=== PATIENT | female | born 1940 | race Caucasian/White ===

== ENCOUNTER → 2016-07-07 | Day surgery (SDC) | payer MEDICARE, BC ==
[~2016-07-07] VITALS: Ht 167.6 cm; Wt 69.4 kg
[~2016-07-07] MED LIST: ASPI81TA19; DO NOT ADM ANY ANTICOAGULANT DRUGS XX PRN; FAMOTIDINE 20 MG/2 ML VIAL ONE; INSULIN HUMAN REGULAR 1,000 UNITS/10 ML VIAL SQ PRN; IOHEXOL 350 MG/ML 10 ML VIAL (for RAD DIAG) OTHER ONE; LACTATED RINGER'S 1000 ML INJ 1,000 ML IV ONE; LACTATED RINGER'S 1000 ML IV SCH; LEVA500T PO; LEVO.05 PO; LEVOFLOXACIN 500 MG PREMIX INJ 100 ML IV SCH; METOPROLOL TARTRATE 25 MG TAB PO PRN; MIDAZOLAM HCL 2 MG/2 ML VIAL ONE; MULTTAB67 PO; ONDANSETRON HCL 4 MG/2 ML VIAL IV PUSH ONE; ONDANSETRON HCL 4 MG/2 ML VIAL IV PUSH PRN; OXYB5TAB10 PO; PERC5TAB12 PO; PROPOFOL 200 MG/20 ML AMP IV ONE; SODIUM CHLORID 0.9% 500 ML IV SCH; TEMA15CA PO; [UNRECOGNIZED DRUG - CODE] PO; oxyCODONE/ACETAMINOPHEN 5 MG/325 MG TAB PO PRN
[2016-07-07 11:12] VITALS: BP 136/74; PULSE 67; RESP 16; TEMP 98.1; O2SAT 98
[2016-07-07 11:52] LABS: AUTOMATED NEUTROPHIL # 1.5 TH/MM3 (1.8-7.7); BASOPHIL # 0.1 TH/MM3 (0-0.2); EOSINOPHIL # 0.1 TH/MM3 (0-0.4); EOSINOPHIL % 1.5 % (0.0-4.0); HEMO FLAGS DIFF FINAL; LYMPHOCYTE # 1.2 TH/MM3 (1.0-4.8); MEAN CELL VOLUME 108.7 FL (80.0-100.0); MEAN CORPUSCULAR HEMOGLOBIN 37.3 PG (27.0-34.0); MEAN CORPUSCULAR HGB CONC 34.3 % (32.0-36.0); MONO % 21.2 % (0.0-8.0); NEUT % 41.3 % (16.0-70.0); PLATELET COUNT 237 TH/MM3 (150-450); RED BLOOD COUNT 3.13 MIL/MM3 (4.00-5.30); RED CELL DISTRIBUTION WIDTH 18.1 % (11.6-17.2); WHITE BLOOD COUNT 3.5 TH/MM3 (4.0-11.0)
--- NOTE | 2016-07-07 16:42 | PD.OP ---
Operative Report Date of Surgery: Jul 07, 2016 Preoperative Diagnosis: (1) Ureteral obstruction, right Postoperative Diagnosis: (1) Ureteral obstruction, right Procedure: Cystoscopy, right retrograde pyelogram and right ureteral stent exchange Anesthesia: General Surgeon: Paul Cruz Skin Toggler(s): None Operation and Findings: Indication for procedure: Case of a pleasant 75-year-old female with history of metastatic breast cancer and chronic right ureteral obstruction who presents today for her annual right ureteral stent exchange. Operative procedure in detail: Patient was brought to the operating suite and placed supine on the OR table. She was then placed under general anesthesia. She was then repositioned in the dorsal lithotomy position and prepped and draped in normal sterile fashion. After an appropriate timeout was undertaken and proceeded with cystoscopic evaluation utilizing the rigid cystoscope with the 22 Chadian sheath and the 30 lens. The previously placed right ureteral stent could be seen protruding from the right ureteral orifice. The left ureteral orifice was in normal anatomic position and effluxing clear yellow urine. I proceeded with grasping the right ureteral stent with a flexible grasper and delivered the stent out to the urethral meatus. A sensor 0.035 wire was advanced through the stent up into the right kidney and the stent removed. It was carefully inspected to ascertain that no stent fragments were left behind. I next backloaded the wire through the cystoscope and a 6 Chadian open-ended ureteral catheter was advanced over the wire and into the right ureter. The wire was removed and a right retrograde study performed outlining the collecting system. The open-ended catheter was then exchanged for a 6 Chadian/24 cm [place] terminal system operator stent under cystoscopic and fluoroscopic guidance without difficulty. Once the stent was in proper position the trailing string was removed. The patient tolerated the procedures without complications and was transferred to the PACU in satisfactory condition. Paul Cruz MD Jul 07, 2016 16:42
[2016-07-07 17:55] VITALS: BP 168/80; PULSE 51; RESP 18; TEMP 96; O2SAT 98
--- NOTE | 2016-07-08 11:36 | EKG ---
Date Performed: 07/07/2016 Time Performed: 11:48:30 PTAGE: 75 years EKG: Sinus rhythm NORMAL ECG PREVIOUS TRACING : 07/08/2015 06.56 DOCTOR: Emmanuel Reyes Interpretating Date/Time 07/08/2016 11:34:58
== END | disposition home or self-care (01) ==
LOC: HSDC 10:14
PROVIDERS: ATTEND Urology
DX: N13.5 Crossing vessel and stricture of ureter without hydronephrosis (principal); N32.81 Overactive bladder; Z01.810 Encounter for preprocedural cardiovascular examination; Z85.3 Personal history of malignant neoplasm of breast
CPT/HCPCS: 00910; 52332; 74420; 85025; 93005; C1769; J1956; J2250; J2405; J3010; J7120; Q9967